=== PATIENT | male | born 1990 | race Caucasian/White ===

== ENCOUNTER 2022-09-22 15:09 | Emergency (ER) | payer OTHER, BC, SELFPAY ==
[2022-09-22 15:16] VITALS: BP 149/88; PULSE 102; O2SAT 97
[2022-09-22 15:22] VITALS: BP 149/88; PULSE 100; RESP 15; TEMP 36.8; O2SAT 97; BMI 31.1
[2022-09-22 15:30] VITALS: BP 149/93; PULSE 99; O2SAT 97
--- NOTE | 2022-09-22 15:30 | PC.NURSE ---
er at bedside
--- NOTE | 2022-09-22 15:30 | PC.NURSE ---
assessed laceration, lightly cleaned laceration, soaked saline guaze placed over laceration until seen by
--- NOTE | 2022-09-22 15:44 | PC.NURSE ---
FIDE DELAROSA at
[2022-09-22 16:00] VITALS: BP 141/85; PULSE 103; O2SAT 98
--- NOTE | 2022-09-22 16:39 | [facility].EDGENADL ---
Discharge Plan Disposition Patient Disposition: Home, Self-Care Condition: Good Chief Complaint: Wound/Laceration Prescriptions Prescriptions: No Action No Known Home Medications Referrals Follow up/Referrals: Provider,Referral, MD [Primary Care Provider] - See instructions Activity Restrictions/Add. Instructions Additional Instructions/Restrictions: Tylenol as needed for pain. Additional instructions for FACIAL LACERATION: Clean the wound daily with soap and water. You may shower. Apply a thin film of antibiotic ointment such as neosporin or triple antibiotic after showering. Avoid submerging the wound, no swimming. See your primary care physician or return to [facility] in 5 days for suture removal. The [facility] is open 8 AM to 8 PM, 7 days a week. Return if any signs of infection including increasing pain, pus drainage, swelling, redness, red streaks, or fever. Clinical Impressions Clinical Impression: Facial laceration Instructions Patient Instructions: DI for Laceration Repair Discharge ED Provider: Hermann Donohue General Adult HPI General Chief complaint: Wound/Laceration Stated complaint: [id number] fell, lac to forehead Time Seen by Provider: 09/22/22 15:33 Mode of Arrival: Ambulatory Source of Information: Patient Limitations: No Limitations Description of Symptoms (Recalled from ER Triage Doc. by RN): pt comes in with laceration to right side of forehead. pt was at work ([employer]) and tripped over a hose. pt states that he fell and hit his head but is unsure if he hit the floor, and something else on the way down. open laceration to forehead. pt denies LOC, dizziness after accident. History of Present Illness HPI narrative: Patient states that he tripped over a hose at work and fell hitting his head on either the floor or rack. No loss of consciousness. No headache. No dizziness, nausea, blurry vision. No neck pain. No symptoms other than the laceration to his forehead above his right eyebrow. Last tetanus immunization less than 5 years ago. Related Data Home Medications Medication Instructions Recorded Confirmed No Known Home Medications 12/07/17 09/22/22 Allergies Allergy/AdvReac Type Severity Reaction Status Date / Time No Known Allergies Allergy Verified 09/22/22 15:26 [facility] Disclaimer: The information contained in this section may have been updated after the patient was seen, as this information can be updated by other users. Social History Smoking Status: Never smoker alcohol intake: never Travel in the last 8 weeks: None ROS Obtained: Yes Systems reviewed as appropriate & no additional complaints except as documented Constitutional Constitutional: Denies headache(s) and Denies weakness Eyes Eyes: Denies change in vision and Denies loss of vision ENT Ears, Nose, Mouth, and Throat: Denies disequilibrium, Denies dizziness, Denies headache(s), Denies neck pain and Denies vertigo Cardiovascular Cardiovascular: Denies chest pain and Denies syncope Respiratory Respiratory: Denies shortness of breath Gastrointestinal Gastrointestingal: Denies abdominal pain, nausea or vomiting Musculoskeletal Musculoskeletal: Denies back pain, Denies neck pain, Denies numbness and Denies tingling Integumentary/Breasts Skin/Breast: Reports as per HPI and Reports wounds Neurologic Neurologic: Denies abnormal speech, Denies confusion, Denies disequilibrium, Denies dizziness, Denies focal weakness, Denies headache(s), Denies lack of coordination, Denies loss of vision, Denies numbness, Denies seizure-like activity, Denies syncope, Denies tingling, Denies vertigo and Denies weakness Physical Exam General General appearance: alert and in no apparent distress Expanded Head Exam Head image: 1. 6 cm gaping laceration into subcutaneous tissue. No active bleeding. No deep structure
[2022-09-22 17:10] VITALS: BP 119/71; PULSE 97; RESP 16; TEMP 36.8; O2SAT 98
== END 2022-09-22 17:11 | disposition home or self-care (01) ==
PROVIDERS: Emergency Provider Emergency Medicine
DX: S01.81XA Laceration without foreign body of other part of head, initial encounter (principal); W01.0XXA Fall on same level from slipping, tripping and stumbling without subsequent striking against object, initial encounter; Z23 Encounter for immunization
CPT/HCPCS: 12014; 90471; 90714; 99283; 99284

== ENCOUNTER 2025-06-19 09:30 | Outpatient (RCR) | payer BC, SELFPAY | END 2025-06-19 23:59 | disposition home or self-care (01) | LOC: PT.CARL 09:30 | PROVIDERS: Visit Provider Orthopaedic Surgery | DX: M23.612 Other spontaneous disruption of anterior cruciate ligament of left knee (principal) | CPT/HCPCS: 97032; 97110; 97161 ==

== ENCOUNTER 2025-07-24 09:30 | Outpatient (RCR) | payer BC, SELFPAY | END 2025-07-24 23:59 | disposition home or self-care (01) | LOC: PT.CARL 09:30 | PROVIDERS: Visit Provider Orthopaedic Surgery | DX: M23.612 Other spontaneous disruption of anterior cruciate ligament of left knee (principal) | CPT/HCPCS: 97032; 97110; 97112; 97140; 97530 ==